=== PATIENT | female | born 1980 | race Two or more races ===

== ENCOUNTER 2016-09-20 17:18 | Emergency (ER) | payer OTHER ==
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
[~2016-09-20 17:18] MED LIST: DARVOCET-N 1001 TAB PO; FLEXERIL PO; IBUPROFEN800 MG PO; MYLANTA400 MG PO; PHENERGAN PR; PRILOSEC PO; TYLENOL #3 PO; ZOFRAN PO
== END 2016-09-20 18:40 | disposition home or self-care (01) ==
LOC: CED 17:18
DX: S16.1XXA Strain of muscle, fascia and tendon at neck level, initial encounter (principal); S40.021A Contusion of right upper arm, initial encounter; S09.90XA Unspecified injury of head, initial encounter; V43.52XA Car driver injured in collision with other type car in traffic accident, initial encounter
CPT/HCPCS: 70450; 71010; 72125; 73060; 74176; 84703; 96374; 96375; 99284; J0456; J0696; J2270; J2405; J2930

== ENCOUNTER 2017-01-13 16:27 | Emergency (ER) | payer OTHER ==
--- NOTE | ~2017-01-13 | US106 ---
[facility] A Service of [facility] RADIOLOGY TEXT RESULTS PATIENT: TYLOR CASTRO LOCATION: [facility] : 78 UNIT #: [id number] AGE: [address]: Wade Terrazas DO SEX: F ORDER DR: [id number] [facility] [address] [place], [place] [address] [id number] E MR#: [id number] Acc #: [id number] NAME: TYLOR CASTRO : 1980 SEX: F STUDY DATE/TIME: 01/13/2017 20:39 UNIT: [facility] ROOM: STUDY DESCRIPTION: US Preg Uterus Transvaginal Attending Physician: Wade Terrazas D.O. Ordering Physician: Wade Terrazas D.O. Primary Care Physician: No Primary Care Physician MEDICAL IMAGING REPORT This report is preliminary unless electronic signature is present EXAM Pelvic ultrasound, transabdominal and transvaginal technique, 01/13/2017. INDICATIONS 36-year-old female with abdominal pain for a day. . Beta HCG pending. TECHNIQUE Sonographic imaging of the pelvis was performed transabdominally and then transvaginally for better evaluation of the adnexa and ovarian structures. COMPARISON No relevant comparisons. FINDINGS TRANSABDOMINAL IMAGING: The uterus is seen transabdominally and better characterized transvaginally. Neither ovary identified transabdominally. TRANSVAGINAL IMAGING: Uterine dimensions are about 9.8 x 6.0 x 7.0 cm. There is a gestational sac within uterus with a yolk sac and a pole. [place]-rump length measures about 0.5 cm for an estimated gestational age of about 6 weeks and 1 day. heart tones were not reliably detected but the technologist measured heart tones in the range of 60 beats per minute which is technically abnormally low but probably relates to the small pole and difficulty obtaining heart tones at this time. Short-term followup is recommended for reassessment. The ovaries are unremarkable. The right measures up to 2.6 cm and the left measures up to 3.3 cm. The ovaries demonstrate good flow and small follicles. No adnexal mass, free fluid or drainable fluid collection. [facility] A Service of [facility] & [facility] RADIOLOGY TEXT RESULTS PATIENT: TYLOR CASTRO [id number] : 76 UNIT #: [id number] AGE: [address]: Wade Terrazas DO SEX: F ORDER DR: IMPRESSION 1. Imaging findings most characteristic of a very early single intrauterine with an estimated gestational age of about 6 weeks and 1 day. heart tones not reliably documented probably related to the small pole as described. Short-term followup ultrasound, FILM COMPOSER referral, repeat beta HCG levels recommended to document progression of this and adequacy of growth. Adequacy of growth cannot be ascertained from this single ultrasound. 2. Ovaries unremarkable. No adnexal mass or free fluid. Dictated by... Michael Cruz M.D. THIS IS AN ELECTRONICALLY VERIFIED REPORT Michael Cruz M.D. at 01/13/2017 11:51 PM Jenelle TD: 01/13/2017 23:27 JOB #: [id number] MEDICAL IMAGING REPORT Page 1 of 1 COPY
[2017-01-13 20:15] LABS: BASOPHIL% 0.4 % (0-2.5); DIFF IND NO; EOSINOPHIL# 0.1 X10e3 (0-0.7); EOSINOPHIL% 0.8 % (0.0-7.0); HEMATOCRIT 37.6 % (35.0-45.0); HEMOGLOBIN 12.5 gm/dL (12.0-16.0); LYMPHOCYTE# 1.9 X10e3 (1.0-3.5); LYMPHOCYTE% 31.5 % (17.0-45.0); MEAN CELL VOLUME 88.2 FL (83-96); MEAN CORPUSCULAR HEMOGLOBIN 29.3 PG (28-34); MEAN CORPUSCULAR HGB CONC 33.2 g/dL (30-36); MEAN PLATELET VOLUME 7.6 FL (6.5-11.5); MONOCYTE# 0.6 X10e3 (0-1.0); MONOCYTE% 9.5 % (3.0-12.0); NEUTROPHIL# 3.5 X10e3 (1.5-7.1); NEUTROPHIL% 57.8 % (40-75); PLATELET COUNT 189 X10e3 (140-420); RED BLOOD COUNT 4.26 X10e (3.90-5.30); RED CELL DISTRIBUTION WIDTH 13.3 % (11.0-15.5)
[2017-01-13 20:37] LABS: ALBUMIN SERUM 4.5 g/dL (3.5-5.0); BILIRUBIN, DIRECT 0.1 mg/dL (0.0-0.2); BILIRUBIN,INDIRECT 0.2 mg/dL (0.0-0.9); BILIRUBIN,TOTAL 0.3 mg/dL (0.2-2.0); CALCIUM SERUM 9.2 mg/dL (8.4-10.2); CREATININE SERUM 0.5 mg/dL (0.6-1.4); GLOM FILT RATE Estimated 122.8 mL/min (>60); POTASSIUM 3.6 mmol/L (3.5-5.1); PROTEIN TOTAL SERUM 7.5 g/dL (6.0-8.3)
[2017-01-13 20:59] LABS: URINE SOURCE CLEAN CATCH
[2017-01-13 21:06] LABS: URINE APPEARANCE CLEAR; URINE BILIRUBIN NEG (NEG); URINE BLOOD NEG (NEG); URINE COLOR YELLOW; URINE GLUCOSE NEG (NEG); URINE KETONE NEG (NEG); URINE LEUKOCYTE ESTERASE NEG (NEG); URINE NITRATE NEG (NEG); URINE PH 5.5 (5-8); URINE PROTEIN NEG (NEG); URINE UROBILINOGEN 0.2 MG/DL (NEG)
[2017-01-13 21:12] LABS: CULTURE INDICATED? NO
== END 2017-01-13 22:00 | disposition home or self-care (01) ==
LOC: CED 16:27
PROVIDERS: Emergency Medicine
DX: O20.0 Threatened abortion (principal)
CPT/HCPCS: 36415; 76817; 80048; 80076; 81003; 84702; 84703; 85025; 96361; 96374; 96375; 99284; J2765